=== PATIENT | male | born 1990 | race Native Hawaiian/Other Pacific Islander ===

== ENCOUNTER 2020-10-29 21:41 | Emergency (ER) | payer BC ==
[2020-10-30 00:33] VITALS: BP 144/99
[2020-10-30] MEDS ORDERED: KETOROLAC 30 MG/1 ML INJ IM ONE (02:35)
[2020-10-30] MEDS ORDERED: ACETAMINOPHEN 500 MG TAB PO ONE (02:35)
[2020-10-30] MEDS ORDERED: dexAMETHasone 20 MG/5 ML VIAL IM ONE (02:35)
[2020-10-30] MEDS ORDERED: CYCLOBENZAPRINE 10 MG TAB PO ONE (03:33)
--- NOTE | 2020-10-30 04:47 | Emergency Department Report ---
ED Back Pain/Injury HPI - General Chief Complaint: Back Pain/Injury Stated Complaint: PAIN IN LOWER BACK Source: patient Limitations: No Limitations - History of Present Illness Initial Comments: Patient is a 30-year-old male with a history of chronic low back pain who presents to the ED with acute exacerbation of chronic low back pain that radiates to the right leg for the last 2 days worse in the last 12 hours. 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 Patient states that [id number] pain medications have not helped control his pain. Patient denies dysuria, urine frequency and urgency, urinary or bowel incontinence, saddle paresthesia, numbness and tingling or weakness of lower extremities bilaterally, fall, nausea and vomiting, abdominal pain, traumatic injury or fever and chills. MD Complaint: back pain, other (Lower back pain that radiates to right hip and leg) -: Sudden, days(s) (2) Similar Symptoms Previously: Yes Place: work Radiation: right leg Severity: severe Severity scale (0 -10): 8 Quality: sharp, aching Consistency: constant Improves With: none Worsens With: movement, walking Context: while lifting Associated Symptoms: denies other symptoms. denies: confusion, weakness, difficulty walking, cough, difficulty urinating, diaphoresis, incontinence, fever/chills, constipation, abdominal pain, nausea/vomiting, seizure, shortness of breath, other Treatments Prior to Arrival: acetaminophen - Related Data Previous Rx's Medication Instructions Recorded Last Taken Type Naproxen 500 mg PO Q12H PRN #30 tablet 10/30/20 Unknown Rx Prednisone [predniSONE 10 mg 10 mg PO .TAPER #21 tab.ds.pk 10/30/20 Unknown Rx (6-Day Pack, 21 Tabs)] methOCARBAMOL [Robaxin TAB] 750 mg PO Q8H PRN #30 tablet 10/30/20 Unknown Rx traMADoL [Ultram] 50 mg PO Q6HR PRN #12 tablet 10/30/20 Unknown Rx ED Review of Systems ROS: Stated complaint: PAIN IN LOWER BACK Other details as noted in HPI Constitutional: denies: chills, fever Eyes: denies: eye pain, eye discharge, vision change ENT: denies: ear pain, throat pain Respiratory: denies: cough, shortness of breath, wheezing Cardiovascular: denies: chest pain, palpitations Endocrine: no symptoms reported Gastrointestinal: denies: abdominal pain, nausea, diarrhea Genitourinary: denies: urgency, dysuria Musculoskeletal: back pain (lower), arthralgia (right hip and leg). denies: joint swelling Skin: denies: rash, lesions Neurological: denies: headache, weakness, paresthesias Psychiatric: denies: anxiety, depression Hematological/Lymphatic: denies: easy bleeding, easy bruising ED Past Medical Hx - Past Medical History Previous Medical History?: No - Surgical History Past Surgical History?: No - Social History Smoking Status: Former Smoker Substance Use Type: None - Medications Home Medications: Home Medications Medication Instructions Recorded Confirmed Last Taken Type Naproxen 500 mg PO Q12H PRN #30 tablet 10/30/20 Unknown Rx Prednisone [predniSONE 10 mg 10 mg PO .TAPER #21 tab.ds.pk 10/30/20 Unknown Rx (6-Day Pack, 21 Tabs)] methOCARBAMOL [Robaxin TAB] 750 mg PO Q8H PRN #30 tablet 10/30/20 Unknown Rx traMADoL [Ultram] 50 mg PO Q6HR PRN #12 tablet 10/30/20 Unknown Rx ED Physical Exam - General Limitations: No Limitations General appearance: alert, in no apparent distress - Head Head exam: Present: atraumatic, normocephalic, normal inspection - Eye Eye exam: Present: normal appearance, PERRL, EOMI Pupils: Present: normal accommodation - ENT ENT exam: Present: normal exam, normal orophraynx, mucous membranes moist, TM's normal bilaterally, normal external ear exam - Neck Neck exam: Present: normal inspection, full ROM - Respiratory Respiratory exam: Present: normal lung sounds bilaterally. Absent: respiratory distress, wheezes, rales, rhonchi, chest wall tenderness - Cardiovascular Cardiovascular Exam: Present: regular rate, normal rhythm, normal heart sounds. Absent: systolic murmur, diastolic murmur, rubs, gallop - GI/Abdominal GI/Abdominal exam: Present: soft, normal bowel sounds. Absent: tenderness, guarding, rebound, hyperactive bowel sounds, hypoactive bowel sounds, organomegaly - Extremities Exam Extremities exam: Present: normal inspection, full ROM, tenderness (Palpable right hip and right thigh tenderness), normal capillary refill - Back Exam Back exam: Present: normal inspection, full ROM, tenderness (Palpable lumbosacral paraspinal musculoskeletal tenderness), muscle spasm, paraspinal tenderness. Absent: CVA tenderness (R), CVA tenderness (L), vertebral tenderness - Neurological Exam Neurological exam: Present: alert, oriented X3, CN II-XII intact, normal gait, reflexes normal - Psychiatric Psychiatric exam: Present: normal affect, normal mood - Skin Skin exam: Present: warm, dry, intact, normal color. Absent: rash ED Course Vital Signs 10/30/20 00:30 Temperature 97.8 F Pulse Rate 91 H Respiratory 17 Rate Blood Pressure 144/99 O2 Sat by Pulse 96 Oximetry ED Medical Decision Making - Medical Decision Making This is a 30-year-old male with a history of chronic low back pain who presents to the ED with acute exacerbation of chronic low back pain that radiates to the right leg for the last 2 days worse in the last 12 hours. 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 Patient states that [id number] pain medications have not helped control his pain. In the ED, patient is alert and oriented x3 and is not in distress. Patient was treated for pain in the ED and on reevaluation, patient's pain is well controlled medications. Patient will discharge home on pain medications and muscle relaxants and advised to follow-up with his primary care physician in 5 to 7 days for reevaluation or return to the ED immediately if symptoms get worse. - Differential Diagnosis Muscle spasm; muscle strain; sciatica; chronic back pain; osteoarthritis Critical care attestation.: If time is entered above; I have spent that time in minutes in the direct care of this critically ill patient, excluding procedure time. ED Disposition Clinical Impression: Spasm of muscle of lower back, Acute exacerbation of chronic low back pain Chronic low back pain with right-sided sciatica Qualifiers: Back pain laterality: bilateral Qualified Code(s): M54.41 - Lumbago with sciatica, right side; G89.29 - Other chronic pain Disposition: - TO HOME OR SELFCARE Is pt being admited?: No Does the pt Need Aspirin: No Condition: Stable Instructions: Muscle Cramps and Spasms, [id number], Chronic Back Pain, [id number], Sciatica, [id number] Additional Instructions: Take medication with food, drink plenty of fluids and follow-up with your primary care physician in 7 to 10 days for reevaluation. Return to the ED immediately if symptoms get worse. Prescriptions: Naproxen 500 mg PO Q12H PRN #30 tablet PRN Reason: Pain , Severe (7-10) Prednisone [predniSONE 10 mg (6-Day Pack, 21 Tabs)] 10 mg PO .TAPER #21 tab.ds.pk methOCARBAMOL [Robaxin TAB] 750 mg PO Q8H PRN #30 tablet PRN Reason: Muscle Spasm traMADoL [Ultram] 50 mg PO Q6HR PRN #12 tablet PRN Reason: Pain Referrals: [facility] [Provider Group] - 7-10 days Forms: Work/School Release Form(ED) Time of Disposition: 04:48 Print Language: TAJIK
== END 2020-10-30 04:47 | disposition home or self-care (01) ==
LOC: ED 21:41
DX: M54.41 Lumbago with sciatica, right side (principal); M62.830 Muscle spasm of back; G89.29 Other chronic pain; Z87.891 Personal history of nicotine dependence
CPT/HCPCS: 96372; 99282; J1100; J1885